=== PATIENT | male | born 1955 | race Caucasian/White ===

== ENCOUNTER 2020-06-05 17:58 | Emergency (ER) | payer BC ==
[2020-06-05 19:48] LABS: RED BLOOD COUNT 1.77 M/UL (4.20-5.50)
[2020-06-05 19:57] LABS: HEMOGLOBIN 5.9 gm/dl (14.0-17.5)
[2020-06-05 20:06] LABS: BUN/CREATININE RATIO 15 (0-10)
== END 2020-06-05 23:00 | disposition short-term general hospital (02) ==
LOC: ER1 17:58
PROVIDERS: Physician Assistant
DX: D64.9 Anemia, unspecified (principal); R47.01 Aphasia; F17.200 Nicotine dependence, unspecified, uncomplicated
CPT/HCPCS: 36430; 70450; 70496; 70498; 80053; 80307; 82140; 82550; 82553; 82962; 83605; 83874; 84484; 85025; 85610; 86850; 86900; 86901; 86920; 87040; 99285; G0480; P9016; Q9967